=== PATIENT | male | born 1945 | race Caucasian/White ===

== ENCOUNTER 2016-11-20 17:15 | Inpatient (IN) | payer MEDICARE, OTHER ==
[~2016-11-20] VITALS: Ht 193 cm; Wt 128.5 kg
[2016-11-20] MEDS ORDERED: SODIUM CHLORIDE 0.9% 1,000 ML IV ONE (17:31)
[2016-11-20] MEDS ORDERED: PLEASE ENTER ALLERGIES MC SCH ×2 (17:33)
[2016-11-20] MEDS ORDERED: MORPHINE SULFATE 4 MG/ML, 1ML ONE (17:40)
[2016-11-20] MEDS: MORPHINE SULFATE 4 MG/ML, 1ML IVPush PRN ×2 (17:43→18:18)
[2016-11-20 17:49] LABS: HEMATOCRIT 45.4 % (39.2-51.8); HEMOGLOBIN 15.6 g/dL (13.7-18.0); WHITE BLOOD COUNT 9.7 x10^3/uL (3.4-10)
[2016-11-20 18:00] LABS: BLOOD UREA NITROGEN 11 mg/dL (7-18)
[2016-11-20] MEDS ORDERED: SODIUM CHLORIDE FLUSH 10ML SYR IVF ONE (18:00)
[2016-11-20] MEDS ORDERED: SODIUM CHLORIDE 0.9% 1,000ML IVBOLUS ONE (18:00)
[2016-11-20 18:17] LABS: IS PT STATUS REG ER OR PRE ER? YES
[2016-11-20] MEDS ORDERED: LOSA1TAB7 PO (20:05)
[2016-11-20] MEDS ORDERED: AMLO5TAB2 PO (20:05)
[2016-11-20] MEDS ORDERED: ATOR-2 PO (20:05)
[2016-11-20] MEDS ORDERED: SOLI5TAB2 PO (20:05)
[2016-11-20] MEDS ORDERED: DULO20CA45 PO (20:05)
[2016-11-20] MEDS ORDERED: DOCUSATE 100 MG CAPSULE PO PRN (21:00)
[2016-11-20] MEDS ORDERED: ENALAPRILAT 1.25 MG/ML, 2ML IVPush PRN (21:00)
[2016-11-20] MEDS: ENOXAPARIN 40 MG/0.4 ML SQ SCH (21:00)
[2016-11-20] MEDS ORDERED: DIPHENHYDRAMINE 25 MG CAPSULE PO PRN (21:00)
[2016-11-20] MEDS ORDERED: HYDROmorphone 1 MG/ML, 1ML ONE (21:36)
[2016-11-20] MEDS: HYDROmorphone 2 MG/ML, 1ML IVPush PRN (21:41)
[2016-11-20 22:50] VITALS: BP 167/92
[2016-11-20] MEDS ORDERED: ALBUTEROL SULFATE 2.5 MG/3 ML NPPB PRN (23:30)
[2016-11-20] MEDS: HYDROcodone/APAP 5/325 TABLET PO PRN (23:34)
[2016-11-20] MEDS: ATORVASTATIN 80 MG TABLET PO SCH (23:35)
[2016-11-21 01:49] VITALS: BP 155/92
[2016-11-21 06:01] LABS: HEMATOCRIT 42.4 % (39.2-51.8); HEMOGLOBIN 14.4 g/dL (13.7-18.0); WHITE BLOOD COUNT 8.2 x10^3/uL (3.4-10)
[2016-11-21 06:16] LABS: BLOOD UREA NITROGEN 10 mg/dL (7-18)
[2016-11-21 06:54] VITALS: BP 137/84
[2016-11-21] MEDS: TEMPLATE NON-FORMULARY MED. (Solifenacin Succinate** (Vesicare**) 5 MG) HOMEMEDPO SCH (09:00)
[2016-11-21] MEDS: LOSARTAN 50MG TABLET PO SCH (09:33)
[2016-11-21] MEDS: HYDROCHLOROTHIAZIDE 12.5 MG CAPSULE PO SCH (09:33)
[2016-11-21] MEDS: AMLODIPINE 5 MG TABLET PO SCH (09:33)
[2016-11-21] MEDS: DULOXETINE 20 MG CAPSULE.DR PO SCH (09:34)
[2016-11-21] MEDS: HYDROmorphone 2 MG/ML, 1ML IVPush PRN (09:42)
[2016-11-21] MEDS ORDERED: ASPI-496 PO (09:50)
[2016-11-21] MEDS ORDERED: PREG20SO PO (09:54)
[2016-11-21] MEDS ORDERED: ONDANSETRON 2MG/ML, 2ML IVPush PRN (10:00)
[2016-11-21] MEDS: CYANOCOBALAMIN 1,000 MCG/ML, 1ML IM SCH (11:00)
[2016-11-21] MEDS: LIDODERM 5% PATCH TD SCH (11:00)
[2016-11-21] MEDS ORDERED: ESZO3TAB28 PO (11:25)
[2016-11-21] MEDS ORDERED: DONE5TAB7 PO (11:25)
[2016-11-21] MEDS ORDERED: LINA145C PO (11:25)
[2016-11-21] MEDS ORDERED: SPIR25TA3 PO (11:25)
[2016-11-21] MEDS ORDERED: TRAM50TA2 PO (11:25)
[2016-11-21] MEDS ORDERED: HYDR-3237 PO (11:25)
[2016-11-21] MEDS: CEFTRIAXONE PMX 1GM/50ML 50 ML IV SCH (13:05)
[2016-11-21] MEDS: AZITHROMYCIN 500 MG in SODIUM CHLORIDE 0.9% 250 ML IV SCH (13:06)
[2016-11-21] MEDS: PREGABALIN 150 MG CAPSULE PO SCH (13:16)
[2016-11-21] MEDS: METHOCARBAMOL 750 MG TABLET PO SCH ×3 (13:16→21:01)
[2016-11-21] MEDS: ASPIRIN 81 MG TABLET EC PO SCH (13:16)
[2016-11-21 13:36] VITALS: BP 113/58
[2016-11-21 20:07] VITALS: BP 119/74
[2016-11-21] MEDS: HYDROcodone/APAP 5/325 TABLET PO PRN (21:00)
[2016-11-21] MEDS: ATORVASTATIN 80 MG TABLET PO SCH (21:01)
[2016-11-21] MEDS: ENOXAPARIN 40 MG/0.4 ML SQ SCH (21:02)
[2016-11-22 01:14] VITALS: BP 131/80
[2016-11-22 05:15] LABS: HEMATOCRIT 42.2 % (39.2-51.8); HEMOGLOBIN 14.3 g/dL (13.7-18.0); WHITE BLOOD COUNT 7.7 x10^3/uL (3.4-10)
[2016-11-22 05:25] LABS: BLOOD UREA NITROGEN 11 mg/dL (7-18)
[2016-11-22] MEDS: METHOCARBAMOL 750 MG TABLET PO SCH ×4 (05:35→21:20)
[2016-11-22 07:33] VITALS: BP 144/90
[2016-11-22] MEDS: TEMPLATE NON-FORMULARY MED. (Solifenacin Succinate** (Vesicare**) 5 MG) HOMEMEDPO SCH (09:00)
[2016-11-22] MEDS: LOSARTAN 50MG TABLET PO SCH (09:20)
[2016-11-22] MEDS: CYANOCOBALAMIN 1,000 MCG/ML, 1ML IM SCH (09:20)
[2016-11-22] MEDS: AMLODIPINE 5 MG TABLET PO SCH (09:21)
[2016-11-22] MEDS: HYDROcodone/APAP 5/325 TABLET PO PRN (09:21)
[2016-11-22] MEDS: PREGABALIN 150 MG CAPSULE PO SCH (09:21)
[2016-11-22] MEDS: DULOXETINE 20 MG CAPSULE.DR PO SCH (09:21)
[2016-11-22] MEDS: HYDROCHLOROTHIAZIDE 12.5 MG CAPSULE PO SCH (09:21)
[2016-11-22] MEDS: ASPIRIN 81 MG TABLET EC PO SCH (09:21)
[2016-11-22] MEDS: SENNA/DOCUSATE TABLET PO SCH (11:56)
[2016-11-22] MEDS: LIDODERM 5% PATCH TD SCH (11:56)
[2016-11-22] MEDS: KETOROLAC 30 MG/1 ML IVPush PRN (12:27)
[2016-11-22] MEDS: CEFTRIAXONE PMX 1GM/50ML 50 ML IV SCH (12:27)
[2016-11-22 14:12] VITALS: BP 131/77
[2016-11-22] MEDS: AZITHROMYCIN 500 MG in SODIUM CHLORIDE 0.9% 250 ML IV SCH (15:03)
[2016-11-22 18:41] VITALS: BP 126/65
[2016-11-22] MEDS: ATORVASTATIN 80 MG TABLET PO SCH (21:20)
[2016-11-22] MEDS: ENOXAPARIN 40 MG/0.4 ML SQ SCH (21:22)
[2016-11-23 02:54] VITALS: BP 156/98
[2016-11-23] MEDS: METHOCARBAMOL 750 MG TABLET PO SCH ×3 (05:55→16:38)
[2016-11-23 06:55] VITALS: BP 147/83
[2016-11-23] MEDS: TEMPLATE NON-FORMULARY MED. (Solifenacin Succinate** (Vesicare**) 5 MG) HOMEMEDPO SCH (09:00)
[2016-11-23] MEDS: HYDROcodone/APAP 5/325 TABLET PO PRN ×2 (09:48→13:18)
[2016-11-23] MEDS: CYANOCOBALAMIN 1,000 MCG/ML, 1ML IM SCH (09:51)
[2016-11-23] MEDS: LOSARTAN 50MG TABLET PO SCH (09:52)
[2016-11-23] MEDS: ASPIRIN 81 MG TABLET EC PO SCH (09:53)
[2016-11-23] MEDS: HYDROCHLOROTHIAZIDE 12.5 MG CAPSULE PO SCH (09:53)
[2016-11-23] MEDS: AMLODIPINE 5 MG TABLET PO SCH (09:53)
[2016-11-23] MEDS: DULOXETINE 20 MG CAPSULE.DR PO SCH (09:53)
[2016-11-23] MEDS: PREGABALIN 150 MG CAPSULE PO SCH (09:53)
[2016-11-23] MEDS: SENNA/DOCUSATE TABLET PO SCH (09:54)
[2016-11-23] MEDS: LIDODERM 5% PATCH TD SCH (12:04)
[2016-11-23 13:15] VITALS: BP 145/81
[2016-11-23] MEDS: KETOROLAC 30 MG/1 ML IVPush PRN (13:18)
[2016-11-23] MEDS ORDERED: Lidoderm 5% Patch TD (16:13)
[2016-11-23] MEDS ORDERED: AZIT500T5 PO (16:13)
[2016-11-23] MEDS ORDERED: CEFD300C37 PO (16:13)
[2016-11-23] MEDS ORDERED: CYAN10002 IM (16:13)
[2016-11-23] MEDS ORDERED: METH750T2 PO (16:13)
[2016-11-23] MEDS ORDERED: CEFDINIR 300 MG CAPSULE PO SCH (21:00)
[2016-11-24] MEDS ORDERED: AZITHROMYCIN 500 MG TABLET PO SCH (10:00)
== END 2016-11-23 17:09 | DRG 183 ==
LOC: ED 19:41 → EDIP 20:56 → 3NE 22:42
PROVIDERS: ADMIT Hospitalist; ATTEND Hospitalist
DX: S22.42XA Multiple fractures of ribs, left side, initial encounter for closed fracture (principal); J96.20 Acute and chronic respiratory failure, unspecified whether with hypoxia or hypercapnia; I50.33 Acute on chronic diastolic (congestive) heart failure; J18.1 Lobar pneumonia, unspecified organism; I11.0 Hypertensive heart disease with heart failure; J44.9 Chronic obstructive pulmonary disease, unspecified; I69.321 Dysphasia following cerebral infarction; Q25.46 Tortuous aortic arch; I69.398 Other sequelae of cerebral infarction; G89.29 Other chronic pain; W01.198A Fall on same level from slipping, tripping and stumbling with subsequent striking against other object, initial encounter; R29.818 Other symptoms and signs involving the nervous system; M43.8X6 Other specified deforming dorsopathies, lumbar region; I44.0 Atrioventricular block, first degree; K59.00 Constipation, unspecified; R29.6 Repeated falls; Y93.E1 Activity, personal bathing and showering; Y99.8 Other external cause status; Y92.091 Bathroom in other non-institutional residence as the place of occurrence of the external cause; Z86.73 Personal history of transient ischemic attack (TIA), and cerebral infarction without residual deficits; I69.311 Memory deficit following cerebral infarction; R42 Dizziness and giddiness
CPT/HCPCS: 36415; 70450; 71010; 72072; 72128; 80048; 81003; 82040; 82607; 82746; 83735; 84100; 84439; 84443; 84484; 85025; 87040; 93005; 93306; J0456; J0696; J1170; J1650; J1885; 92523-GN; J3420; J7030; J7050; Q0163